=== PATIENT | male | born 1970 | race Caucasian/White ===

== ENCOUNTER 2023-06-18 09:26 | Emergency (ER) | payer OTHER, MEDICAID, SELFPAY ==
[2023-06-18 09:31] VITALS: BP 128/86; PULSE 80; RESP 18; TEMP 36.7; O2SAT 98; BMI 25.0
--- NOTE | 2023-06-18 09:54 | PC.NURSE ---
Dr. Cordero at bedside for initial eval
--- NOTE | 2023-06-18 09:59 | ED_ITS ---
HPI - General Adult General Chief complaint: Upper Respiratory Symptoms Stated complaint: throath feel closed up, ear pain Time Seen by Provider: 06/18/23 09:35 Source: patient Mode of arrival: Ambulatory History of Present Illness HPI narrative: Patient is a 52-year-old male. History of MS. For the past 10 days he is had sinus congestion, sore throat, ear pain. He states that yesterday he felt a sharp pain in his right ear and then started to get drainage out of the ear. He does have decreased hearing in this ear because of that. His left ear feels full. He is also having pain in his throat specifically with swallowing. Swel ling on the left side of his neck. No problems breathing. Is coughing. No fevers. Tested himself for COVID at home yesterday which was negative. Related Data Allergies Allergy/AdvReac Type Severity Reaction Status Date / Time codeine [CODEINE] Allergy Unknown Unverified 11/11/17 12:31 Review of Systems Constitutional Constitutional: Reports system reviewed and no additional complaints, except as documented ENT Ears, Nose, Mouth, and Throat: Reports system reviewed and no additional complaints, except as documented Respiratory Respiratory: Reports system reviewed and no additional complaints, except as documented Allergic/Immunologic Allergic/Immunologic: Reports system reviewed and no additional complaints, except as documented Patient History Social History Smoking Status: Current every day smoker Smoking Status: Current every day smoker tobacco type: cigarettes Exam Initial Vital Signs Initial Vital Signs: Vital Signs Temperature 98.1 F 06/18/23 09:31 Pulse Rate 80 06/18/23 09:31 Respiratory Rate 18 06/18/23 09:31 Blood Pressure 128/86 06/18/23 09:31 Pulse Oximetry 98 06/18/23 09:31 Oxygen Delivery Method Room Air 06/18/23 09:31 Const General: cooperative, comfortable and No ill appearing HENMT Ears: EAC's normal (There is fluid in the right external auditory canal) Mouth: oral mucosae normal, tongue normal and No trismus Throat: uvula midline and abnormal tonsil on the left erythema and exudates HENMT Other: Left tympanic membrane bulging, right tympanic membrane retracted Neck Other: Left submandibular lymphadenopathy Resp Effort & Inspection: normal respiratory effort Skin General: no rashes or lesions noted Neuro General: patient alert, patient awake and moves all extremities Extrem General: normal to inspection Course Orders Ordered: ED Orders 06/18/23 10:02 Strep Grp A by PCR Rapid Stat Throat Culture Stat Penicillin G Benzathine (Penicillin G Benzathine 1,200,000 Unit/2 Ml Syringe) 1,200,000 unit IM NOW ONE Stop: 06/18/23 10:38 Vital Signs Vital signs: Vital Signs - 8 hr 06/18/23 09:31 Temperature 98.1 F Pulse Rate 80 Respiratory Rate 18 Blood Pressure 128/86 Pulse Oximetry 98 Oxygen Delivery Method Room Air Medical Decision Making Lab Data Lab results reviewed: Yes I reviewed the patient's lab results. Labs: Lab Results 06/18/23 Range/Units 10:02 Group A Strep (PCR) Positive H (Negative) MDM Narrative Medical decision making narrative: Patient does have strep throat. After discussion about treatment options to include oral and IM antibiotics he opted for the IM dose of Bicillin. We discussed that this should improve his symptoms. We discussed the use of antihistamines. I have a strong suspicion that he has a ruptured right tympanic membrane. The tympanic membrane is not erythematous. There is fluid in the external auditory canal but it is not erythematous as well. Advised that the patient should follow-up with your nose and throat if his symptoms do not improve. He was given return precautions. He expressed understanding and agreement. Discharge Plan Departure Patient Disposition: Home Clinical Impression: Strep throat, Rupture of right tympanic membrane Instructions: Strep Throat Activity Restrictions/Additional Instructions: You can continue to take Tylenol and ibuprofen for any discomfort. You should start to see some improvement within the next 24 hours. Recommend that if you still are having hearing issues with your right ear after all of your other symptoms have improved that you contact the [facility] doctors with the number provided below for follow-up. Referrals: Nehemias Akbar MD [Primary Care Provider] - Elijah Berrios MD [Physician] - Stand Alone Forms: Patient Portal/API
[2023-06-18 10:15] LABS: Strep Grp A by PCR Rapid Positive (Negative)
[2023-06-18] MEDS: PENICILLIN G BENZATHINE 1,200,000 UNIT/2 ML SYRINGE 1200000 UNIT IM (10:43)
[2023-06-18 10:51] VITALS: BP 142/80; PULSE 79; RESP 12; O2SAT 98
[2023-06-18 10:53] VITALS: BP 142/80; PULSE 79; RESP 12; O2SAT 98
== END 2023-06-18 10:55 | disposition home or self-care (01) ==
PROVIDERS: Emergency Provider Emergency Medicine; Family Provider Family Medicine; PCP Family Medicine
DX: J02.0 Streptococcal pharyngitis (principal); H72.91 Unspecified perforation of tympanic membrane, right ear; F17.200 Nicotine dependence, unspecified, uncomplicated
CPT/HCPCS: 87070; 87077; 87147; 87651; 96372; 99283; J0561

== ENCOUNTER 2023-06-19 17:21 | Emergency (ER) | payer OTHER, MEDICAID, SELFPAY ==
[2023-06-19 17:34] VITALS: BP 113/66; PULSE 70; RESP 22; TEMP 37.6; O2SAT 98; BMI 25.0
[2023-06-19] MEDS: SODIUM CHLORIDE 0.9% 1,000 ML 1000 ML IV (17:59)
[2023-06-19] MEDS: DEXAMETHASONE 10 MG/ML VIAL IV (17:59)
[2023-06-19 18:19] LABS: Add Manual Diff / Slide Review NO; Basophils Absolute Auto 100 /uL (0-100); Basophils Percent Auto 0.6 % (0-2); Eosinophils Absolute Auto 100 /uL (0-450); Eosinophils Percent Auto 0.5 % (2-4); Hematocrit 44.8 % (41-53); Hemoglobin 15.4 g/dL (13.5-17.5); Lymphocytes Absolute Auto 1300 /uL (1100-4500); Mean Corpuscular HGB Conc 34.4 % (30-36); Mean Corpuscular Hemoglobin 29.4 PG (26-34); Mean Corpuscular Volume 85.4 fL (80-100); Monocytes Absolute Auto 1800 /uL (0-900); Monocytes Percent Auto 9.5 % (3-14); Neutrophils Absolute Auto 15800 /uL (1500-7000); Neutrophils Percent Auto 82.4 % (50-75); Platelet Count 331 X10^3/uL (150-400); Red Blood Cell Count 5.25 X10^6/uL (4.5-5.9); Red Cell Distribution Width 12.8 % (11.6-14.8); White Blood Cell Count 19.1 X10^3/uL (4.5-11.0)
[2023-06-19 18:31] LABS: BUN Creatinine Ratio 19.1 (6-22); Blood Urea Nitrogen 17 mg/dL (9-20); Calcium 9.4 mg/dL (8.4-10.2); Carbon Dioxide 25 mmol/L (22-32); Chloride 103 mmol/L (98-107); Estimated Glomerular Filt Rate > 60 mL/min (>60); Glucose 104 mg/dL (70-100); HEMOLYSIS < 15 (0-50); Potassium 4.2 mmol/L (3.4-5.1); Sodium 136 mmol/L (137-145)
--- NOTE | 2023-06-19 19:29 | ED.URI ---
HPI - URI/Sore Throat General Chief Complaint: Upper Respiratory Symptoms Stated Complaint: Sore throat T-12 Time Seen by Provider: 06/19/23 17:48 History of Present Illness HPI Narrative: Gentleman comes to the ED today with a number of days worth of sore throat and fever. He was seen yesterday and given penicillin for his diagnosed strep throat. Since then he is developed increasing difficulty with swallowing and fullness in the back of his throat. Quite a bit of ear pain bilaterally. No vomiting but quite a bit of difficulty swallowing as well and he is concerned that he may be becoming dehydrated. No chest or abdominal symptoms. He does have multiple sclerosis but is currently taking no biologic medications. Related Data Previous Rx's Medication Instructions Recorded amoxicillin 875 mg-potassium 1 tab PO BID #14 tabs 06/19/23 clavulanate 125 mg tablet dexamethasone 4 mg tablet 4 mg PO Q12H #10 tabs 06/19/23 morphine 15 mg immediate release 15 mg PO Q4H #14 tabs 06/19/23 tablet naloxone 4 mg/actuation nasal 4 mg intranasal Q2M PRN opioid 06/19/23 spray (Narcan) overdose #2 ea Allergies Allergy/AdvReac Type Severity Reaction Status Date / Time codeine [CODEINE] Allergy Unknown Verified 06/19/23 17:59 Patient History Social History Smoking Status: Current every day smoker Smoking Status: Current every day smoker tobacco type: cigarettes alcohol intake frequency: 0-2 drinks per day Substance Use Type: marijuana Exam Narrative Exam Narrative: GENERAL: Alert, cooperative and in no distress. HEAD: Atraumatic. Normocephalic. EYES: Sclera are clear without icterus. Extraocular movements are full. ENT: No rhinorrhea. Moist mucous membranes. Bulging of the tonsil on the left toward the right. The hypopharynx is widely patent otherwise. No purulent drainage. TM on the left looks normal. On the right there is material in the canal obscuring the view of the tympanic membrane. NECK: Supple. Full range of motion. No induration of the floor of the mouth. He has no tender cervical adenopathy. CARDIOVASCULAR: Normal rate and rhythm without murmur gallop or rub. RESPIRATORY: Clear to auscultation. Breath sounds equal bilaterally. No wheezes, rales, or rhonchi. GASTROINTESTINAL: Abdomen soft, non-tender, nondistended. EXTREMITIES: No edema, full range of motion. No obvious trauma. BACK: Normal inspection, no CVA tenderness. NEURO: Nonfocal examination, normal speech, normal gait. SKIN: No rash or erythema of visible areas PSYCH: Normally oriented. Normal range of affect. Appropriate behavior Initial Vital Signs Initial Vital Signs: Vital Signs Temperature 99.7 F H 06/19/23 17:34 Pulse Rate 70 06/19/23 17:34 Respiratory Rate 22 06/19/23 17:34 Blood Pressure 113/66 06/19/23 17:34 Pulse Oximetry 98 06/19/23 17:34 Oxygen Delivery Method Room Air 06/19/23 17:34 Course Orders Ordered: ED Orders 06/19/23 18:00 Basic Metabolic Panel Stat Complete Blood Count AUTO DIFF Stat Discontinued Medications Dexamethasone (Dexamethasone 10 Mg/Ml Vial) 10 mg IV NOW ONE Stop: 06/19/23 17:49 Last Admin: 06/19/23 17:59 Dose: 10 mg Documented By: ANA LUISA Sodium Chloride (Normal Saline 0.9%) 1,000 mls @ 1,000 mls/hr IV BOLUS ONE Stop: 06/19/23 18:47 Last Infusion: 06/19/23 18:51 Dose: Infused Documented By: ANA LUISA Admin: 06/19/23 17:59 Dose: 1,000 mls/hr Documented By: ANA LUISA Vital Signs Vital signs: Vital Signs - 8 hr 06/19/23 17:34 Temperature 99.7 F H Pulse Rate 70 Respiratory Rate 22 Blood Pressure 113/66 Pulse Oximetry 98 Oxygen Delivery Method Room Air MDM - URI/Sore Throat Lab Data 06/19/23 18:00 06/19/23 18:00 Labs: Lab Results 06/19/23 Range/Units 18:00 WBC 19.1 H (4.5-11.0) X10^3/uL RBC 5.25 (4.5-5.9) X10^6/uL Hgb 15.4 (13.5-17.5) g/dL Hct 44.8 (41-53) % MCV 85.4 (80-100) fL MCH 29.4 (26-34) PG MCHC 34.4 (30-36) % RDW 12.8 (11.6-14.8) % Plt Count 331 (150-400) X10^3/uL Neut % (Auto) 82.4 H (50-75) % Lymph % (Auto) 7.0 L (25-40) % Grainger % (Auto) 9.5 (3-14) % Eos % (Auto) 0.5 L (2-4) % Baso % (Auto) 0.6 (0-2) % Neut # (Auto) 70530 H (3480-5300) /uL Lymph # (Auto) 1300 (5970-1228) /uL Grainger # (Auto) 1800 H (0-900) /uL Eos # (Auto) 100 (0-450) /uL Baso # (Auto) 100 (0-100) /uL Sodium 136 L (137-145) mmol/L Potassium 4.2 (3.4-5.1) mmol/L Chloride 103 (98-107) mmol/L Carbon Dioxide 25 (22-32) mmol/L BUN 17 (9-20) mg/dL Creatinine 0.89 (0.66-1.25) mg/dL Estimated GFR > 60 (>60) mL/min BUN/Creatinine Ratio 19.1 (6-22) Glucose 104 H (70-100) mg/dL Calcium 9.4 (8.4-10.2) mg/dL MDM Narrative Medical decision making narrative: Prior to coming back he received 1 L of IV saline and dexamethasone IV. White blood cell count is markedly elevated but he looks quite well with normal vital signs now. His hypopharynx is widely patent and he feels like he can swallow now. I think home care is safe and appropriate. We will put him on dexamethasone 4 mg twice daily and add Augmentin 875 b.i.d. for 7 days. Careful return precautions given. See discharge instructions. Discharge Plan Departure Patient Disposition: Home Clinical Impression: Peritonsillar abscess Activity Restrictions/Additional Instructions: You have swelling on the left side of the back of her mouth which is called a peritonsillar abscess. Take the dexamethasone morning and night for the next 5 days. Take Tylenol 1000 mg every 6 hours. For more severe pain take 1 morphine tablet as frequently as every 4 hours. Make sure that you are staying well hydrated. Return to the ED if you do not think you are able to keep up or if you think you are having trouble with breathing. Typically this gets better with these medication treatments. I do also want to add on an additional antibiotic which I have sent to the pharmacy as well. You do need to check in with your doctor in 1 or 2 weeks to make sure everything is gone back to normal. Prescriptions: New amoxicillin-pot clavulanate 875-125 mg tablet 1 tab PO BID Qty: 14 0RF dexamethasone 4 mg tablet 4 mg PO Q12H Qty: 10 0RF morphine 15 mg tablet 15 mg PO Q4H Qty: 14 0RF naloxone [Narcan] 4 mg/actuation spray,non-aerosol 4 mg intranasal Q2M PRN (Reason: opioid overdose) Qty: 2 0RF Rx Instructions: spray 1 dose into ONE nostril; alternate nostrils w each dose until help arrives Referrals: Nehemias Akbar MD [Primary Care Provider] - Stand Alone Forms: Patient Portal/API
== END 2023-06-19 19:41 | disposition home or self-care (01) ==
PROVIDERS: Emergency Medicine; Emergency Provider Family Medicine Addiction Medicine; Family Provider Family Medicine; PCP Family Medicine
DX: J36 Peritonsillar abscess (principal)
CPT/HCPCS: 36415; 80048; 85025; 96361; 96374; 99284; J1100

== ENCOUNTER 2023-06-21 17:19 | Emergency (ER) | payer OTHER, MEDICAID, SELFPAY ==
[2023-06-21] VITALS (7 sets, daily range): BP systolic 118–155; BP diastolic 72–95; PULSE 56–68; RESP 16; TEMP 36.8; O2SAT 96–99; BMI 25.0
--- NOTE | 2023-06-21 17:28 | ED_ITS ---
HPI - General Adult <Wilfrid Diaz PA-C - Last Filed: 06/21/23 18:47> General Chief complaint: Skin/Abscess/Foreign Body Stated complaint: Absces tonsil Time Seen by Provider: 06/21/23 17:25 History of Present Illness HPI narrative: This is a 52-year-old male presents to emergency department due to similar to worsening pain to the left side of his throat. Three days ago he was diagnosed with strep throat and prescribed penicillin. Two days ago he came into the emergency department with worsening sore throat and diagnosed with a peritonsillar abscess and Augmentin was added on top of the penicillin. He was also given dexamethasone. Coming in today due to increased discomfort to the left side of his throat. No difficulty breathing or swallowing states that it hurts too much to maintain much p.o. intake. Denies any nausea, vomiting, fevers, or any other concerning signs or symptoms. Related Data Previous Rx's Medication Instructions Recorded amoxicillin 875 mg-potassium 1 tab PO BID #14 tabs 06/19/23 clavulanate 125 mg tablet dexamethasone 4 mg tablet 4 mg PO Q12H #10 tabs 06/19/23 morphine 15 mg immediate release 15 mg PO Q4H #14 tabs 06/19/23 tablet naloxone 4 mg/actuation nasal 4 mg intranasal Q2M PRN opioid 06/19/23 spray (Narcan) overdose #2 ea amoxicillin 875 mg-potassium 1 tab PO BID 12 days #24 tabs 06/21/23 clavulanate 125 mg tablet lidocaine HCl 2 % mucosal solution 1 applic mucous membrane BID PRN 06/21/23 (Lidocaine Viscous) pain #100 mL Allergies Allergy/AdvReac Type Severity Reaction Status Date / Time codeine [CODEINE] Allergy Unknown Verified 06/19/23 17:59 Review of Systems <Wilfrid Diaz PA-C - Last Filed: 06/21/23 18:47> Review of Systems Narrative: GENERAL: Denies chills, fatigue, malaise, fever, sweats. HEENT: Reports left sided throat pain RESPIRATORY: Denies dyspnea, cough, wheezing, hemoptysis, sputum. CARDIOVASCULAR: Denies chest pain, palpitations, orthopnea, edema, GASTROINTESTINAL: Denies nausea, vomiting, abdominal pain, diarrhea, constipation, melena. : Denies dysuria, frequency, incontinence, hematuria, urinary retention. MUSCULOSKELETAL: denies weakness, joint pain, or bony pain SKIN: Denies rash, skin lesions, or other NEUROLOGIC: Denies weakness, headache, numbness, change in speech, confusion, seizures, incoordination. PSYCHIATRIC: No concerning psychosocial issues. 12 point review of systems is negative except for those stated above Patient History <Wilfrid Diaz PA-C - Last Filed: 06/21/23 18:47> Social History Smoking Status: Current every day smoker Smoking Status: Current every day smoker tobacco type: cigarettes alcohol intake frequency: 0-2 drinks per day Substance Use Type: marijuana Exam <Wilfrid Diaz PA-C - Last Filed: 06/21/23 18:47> Narrative Exam Narrative: GENERAL: Well-developed patient, in mild distress. HEAD: Atraumatic. Normocephalic. EYES: Pupils equal round and reactive. Extraocular motions intact. No scleral icterus. No injection or drainage. ENT: Nose without bleeding, purulent drainage. Airway patent. Erythematous posterior oropharynx with tonsillar edema on the left side. Uvula midline. No exudate visible. NECK: Trachea midline. Non tender CARDIOVASCULAR: Regular rate and rhythm without murmurs, gallops, or rubs. RESPIRATORY: Clear to auscultation. Breath sounds equal bilaterally. No wheezes, rales, or rhonchi. GASTROINTESTINAL: Abdomen soft, non-tender, nondistended. EXTREMITIES: No edema or joint tenderness. BACK: Nontender without deformity or crepitance. No flank tenderness. NEURO: AOx3. SKIN: No rash or erythema of visible areas Initial Vital Signs Initial Vital Signs: Vital Signs Pulse Rate 66 06/21/23 17:26 Pulse Oximetry 98 06/21/23 17:26 <Vashti Hooks DO - Last Filed: 06/23/23 07:38> Initial Vital Signs Initial Vital Signs: Vital Signs Pulse Rate 66 06/21/23 17:26 Pulse Oximetry 98 06/21/23 17:26 Course <Wilfrid Diaz PA-C - Last Filed: 06/21/23 18:47> Orders Ordered: Discontinued Medications Dexamethasone (Dexamethasone 4 Mg/Ml Vial) 4 mg IV NOW ONE Stop: 06/21/23 17:44 Last Admin: 06/21/23 17:58 Dose: 4 mg Documented By: MICHEL Sodium Chloride (Normal Saline 0.9%) 1,000 mls @ 2,000 mls/hr IV BOLUS ONE Stop: 06/21/23 18:12 Last Infusion: 06/21/23 18:45 Dose: Infused Documented By: Admin: 06/21/23 17:58 Dose: 2,000 mls/hr Documented By: MICHEL Ceftriaxone Sodium 2,000 mg/ (Sodium Chloride) 100 mls @ 200 mls/hr IV NOW ONE Stop: 06/21/23 18:07 Last Infusion: 06/21/23 18:45 Dose: Infused Documented By: Admin: 06/21/23 18:10 Dose: 200 mls/hr Documented By: MICHEL Ketorolac Tromethamine (Ketorolac 30 Mg/Ml Vial) 15 mg IV NOW ONE Stop: 06/21/23 17:54 Last Admin: 06/21/23 17:59 Dose: 15 mg Documented By: MICHEL Ondansetron HCl (Ondansetron 4 Mg/2 Ml Inj) 4 mg IV NOW ONE Stop: 06/21/23 18:07 Last Admin: 06/21/23 18:10 Dose: 4 mg Documented By: MICHEL Vital Signs Vital signs: Vital Signs - 8 hr 06/21/23 17:26 06/21/23 17:27 06/21/23 17:27 Temperature Pulse Rate 66 66 Respiratory Rate Blood Pressure 148/95 H Pulse Oximetry 98 97 Oxygen Delivery Method 06/21/23 17:29 06/21/23 17:30 06/21/23 18:04 Temperature 98.3 F Pulse Rate 68 56 L 65 Respiratory Rate 16 Blood Pressure 148/95 H Pulse Oximetry 98 99 97 Oxygen Delivery Method Room Air 06/21/23 18:05 06/21/23 18:05 Temperature Pulse Rate 65 Respiratory Rate Blood Pressure 155/78 H Pulse Oximetry 98 Oxygen Delivery Method <Vashti Hooks DO - Last Filed: 06/23/23 07:38> Orders Ordered: Discontinued Medications Dexamethasone (Dexamethasone 4 Mg/Ml Vial) 4 mg IV NOW ONE Stop: 06/21/23 17:44 Last Admin: 06/21/23 17:58 Dose: 4 mg Documented By: MICHEL Sodium Chloride (Normal Saline 0.9%) 1,000 mls @ 2,000 mls/hr IV BOLUS ONE Stop: 06/21/23 18:12 Last Infusion: 06/21/23 18:45 Dose: Infused Documented By: Admin: 06/21/23 17:58 Dose: 2,000 mls/hr Documented By: MICHEL Ceftriaxone Sodium 2,000 mg/ (Sodium Chloride) 100 mls @ 200 mls/hr IV NOW ONE Stop: 06/21/23 18:07 Last Infusion: 06/21/23 18:45 Dose: Infused Documented By: Admin: 06/21/23 18:10 Dose: 200 mls/hr Documented By: MICHEL Ketorolac Tromethamine (Ketorolac 30 Mg/Ml Vial) 15 mg IV NOW ONE Stop: 06/21/23 17:54 Last Admin: 06/21/23 17:59 Dose: 15 mg Documented By: MICHEL Ondansetron HCl (Ondansetron 4 Mg/2 Ml Inj) 4 mg IV NOW ONE Stop: 06/21/23 18:07 Last Admin: 06/21/23 18:10 Dose: 4 mg Documented By: MICHEL Vital Signs Vital signs: Vital Signs - 8 hr 06/21/23 17:26 06/21/23 17:27 06/21/23 17:27 Temperature Pulse Rate 66 66 Respiratory Rate Blood Pressure 148/95 H Pulse Oximetry 98 97 Oxygen Delivery Method 06/21/23 17:29 06/21/23 17:30 06/21/23 18:04 Temperature 98.3 F Pulse Rate 68 56 L 65 Respiratory Rate 16 Blood Pressure 148/95 H Pulse Oximetry 98 99 97 Oxygen Delivery Method Room Air 06/21/23 18:05 06/21/23 18:05 Temperature Pulse Rate 65 Respiratory Rate Blood Pressure 155/78 H Pulse Oximetry 98 Oxygen Delivery Method Medical Decision Making <Wilfrid Diaz PA-C - Last Filed: 06/21/23 18:47> Lab Data 06/21/23 17:43 06/21/23 17:43 Labs: Lab Results 06/21/23 Range/Units 17:43 WBC 23.5 H (4.5-11.0) X10^3/uL RBC 5.21 (4.5-5.9) X10^6/uL Hgb 15.3 (13.5-17.5) g/dL Hct 45.0 (41-53) % MCV 86.4 (80-100) fL MCH 29.4 (26-34) PG MCHC 34.0 (30-36) % RDW 13.0 (11.6-14.8) % Plt Count 385 (150-400) X10^3/uL Neut % (Auto) 87.3 H (50-75) % Lymph % (Auto) 6.2 L (25-40) % Vigo % (Auto) 6.3 (3-14) % Eos % (Auto) 0.0 L (2-4) % Baso % (Auto) 0.2 (0-2) % Neut # (Auto) 86474 H (9012-4467) /uL Lymph # (Auto) 1500 (1743-1839) /uL Vigo # (Auto) 1500 H (0-900) /uL Eos # (Auto) 0 (0-450) /uL Baso # (Auto) 0 (0-100) /uL Sodium 139 (137-145) mmol/L Potassium 4.3 (3.4-5.1) mmol/L Chloride 102 (98-107) mmol/L Carbon Dioxide 25 (22-32) mmol/L BUN 25 H (9-20) mg/dL Creatinine 0.85 (0.66-1.25) mg/dL Estimated GFR > 60 (>60) mL/min BUN/Creatinine Ratio 29.4 H (6-22) Glucose 128 H (70-100) mg/dL Calcium 9.4 (8.4-10.2) mg/dL Total Bilirubin 0.6 (0.2-1.3) mg/dL AST 15 L (17-59) IU/L ALT 14 (<50) IU/L Alkaline Phosphatase 74 (38-126) U/L Total Protein 8.3 H (6.3-8.2) g/dL Albumin 4.0 (3.5-5.0) g/dL Globulin 4.3 H (1.7-4.1) g/dL Albumin/Globulin Ratio 0.9 L (1.0-2.8) Imaging Data CT neck soft tissue : Radiologist's Impression: [address] [address] [address] Scan Report Signed Patient: Elijah Jaimes MR#: [id number] : 1970 Acct:[id number] Age/Sex: 52 / M Date of Service: 06/21/23 Loc: ED Accession Number: [id number] Procedure: CT soft tissue neck w con Ordering Provider: Wilfrid Diaz P.A-C PROCEDURE: CT SOFT TISSUE NECK W CON INDICATIONS: Concern for L sided peritonsillar abscess TECHNIQUE: After the administration of intravenous contrast, 3.0 mm axial sections acquired from the sella to the aortic arch. Additional oblique axial 3.0 mm sections acquired through the pharynx. 3 mm thick coronal and sagittal reformats were generated. For radiation dose reduction, the following was used: automated exposure control. COMPARISON: None. FINDINGS: Image quality: Excellent. Lymph nodes: Left cervical lymphadenopathy within cervical regions 2 and 3. Vessels: Visualized vasculature appears patent. Neck spaces: Left peritonsillar abscess measuring 2.8 x 1.8 x 4.8 cm in the craniocaudal dimension. Extends along the prevertebral soft tissues to the level of C4. The nasopharynx, and pharynx demonstrate no mucosal lesions. The vocal cords, false vocal cords, pyriform sinuses, epiglottis, vallecula, and tongue base all appear normal. Glands: The parotid and submandibular glands appear normal. Thyroid gland contains no suspicious nodules. Miscellaneous: Visualized brain and orbits appear normal. Lung apices appear clear. Superficial soft tissues appear normal. Bones: No suspicious bony lesions. Opacification of the right maxillary sinus. IMPRESSION: Left peritonsillar abscess. Dr. Hart discussed the above findings with the ER physician at 5:30 p.m. [place] time Dictated by: Emmanuel Hart M.D. on 06/21/2023 at 17:22 Approved by: Emmanuel Hart M.D. on 06/21/2023 at 17:33 [facility] Narrative Medical decision making narrative: MDM * differential diagnosis includes but not limited to peritonsillar abscess, retropharyngeal abscess, strep throat * Prior records reviewed: Patient was seen here 2 days ago due to peritonsillar abscess. Patient was given penicillin for diagnosis of strep throat the day prior. He then developed difficulty with swallowing and fullness in the back of the throat. White blood cell count was 19.1. Patient was given a L of fluids and dexamethasone IV. Patient was prescribed dexamethasone 4 mg b.i.d. and Augmentin added for 7 days. After being diagnosed with a peritonsillar abscess. * My lab interpretation: CMP unremarkable. CBC showed leukocytosis of 23.5. 19.1 2 days ago. Increasing white count maybe due to the steroids that the patient has been given during the prior visit as well as prescribed. * My imgaing interpretation: CT findings as above. Showed a left-sided peritonsillar abscess. * Clinical Decision Rules/Scores evaluated: None * Independent discussions with: None ED Course: This is a 52-year-old male presents to the emergency department due to concerns for worsening infection. Two days ago he was seen here in the emergency department and diagnosed with a peritonsillar abscess in the left side. Please see the above record review. Patient states that he has been taking the Augmentin and dexamethasone that he was prescribed as well as the morphine for pain control. He states that he was still having a moderate amount of pain causing him to come in today. He denies any new fevers or any other new symptoms. He was still able to maintain his secretions and denies any difficulty breathing. CT was ordered today which confirmed the left-sided peritonsillar abscess. He was given IV dexamethasone, Toradol, ceftriaxone and fluids here in the emergency department. He reported feeling much better. White count was mildly elevated with a value of 23.5, 19.1 2 days ago which maybe due to the steroids he was given 2 days ago. Patient will be discharged with a a prescription to complete an entire 14 day course of the Augmentin as well as oral dexamethasone and viscous lidocaine for pain control. Also recommended ibuprofen and Tylenol as well as the morphine that he was previously prescribed. Shared Decision Making: Discussed plan with patient who is comfortable with the plan. Social Considerations: None Disposition: Discharged to home <Vashti Hooks, - Last Filed: 06/23/23 07:38> Lab Data Labs: Lab Results 06/21/23 Range/Units 17:43 WBC 23.5 H (4.5-11.0) X10^3/uL RBC 5.21 (4.5-5.9) X10^6/uL Hgb 15.3 (13.5-17.5) g/dL Hct 45.0 (41-53) % MCV 86.4 (80-100) fL MCH 29.4 (26-34) PG MCHC 34.0 (30-36) % RDW 13.0 (11.6-14.8) % Plt Count 385 (150-400) X10^3/uL Neut % (Auto) 87.3 H (50-75) % Lymph % (Auto) 6.2 L (25-40) % Vigo % (Auto) 6.3 (3-14) % Eos % (Auto) 0.0 L (2-4) % Baso % (Auto) 0.2 (0-2) % Neut # (Auto) 97105 H (8877-9768) /uL Lymph # (Auto) 1500 (1957-8146) /uL Vigo # (Auto) 1500 H (0-900) /uL Eos # (Auto) 0 (0-450) /uL Baso # (Auto) 0 (0-100) /uL Sodium 139 (137-145) mmol/L Potassium 4.3 (3.4-5.1) mmol/L Chloride 102 (98-107) mmol/L Carbon Dioxide 25 (22-32) mmol/L BUN 25 H (9-20) mg/dL Creatinine 0.85 (0.66-1.25) mg/dL Estimated GFR > 60 (>60) mL/min BUN/Creatinine Ratio 29.4 H (6-22) Glucose 128 H (70-100) mg/dL Calcium 9.4 (8.4-10.2) mg/dL Total Bilirubin 0.6 (0.2-1.3) mg/dL AST 15 L (17-59) IU/L ALT 14 (<50) IU/L Alkaline Phosphatase 74 (38-126) U/L Total Protein 8.3 H (6.3-8.2) g/dL Albumin 4.0 (3.5-5.0) g/dL Globulin 4.3 H (1.7-4.1) g/dL Albumin/Globulin Ratio 0.9 L (1.0-2.8) Discharge Plan Departure Patient Disposition: Home Clinical Impression: Abscess, peritonsillar Instructions: DI for Peritonsillar Abscess -- Adult Activity Restrictions/Additional Instructions: Thank you for coming to the [facility] Emergency Department today. As as we discussed I recommend he use ibuprofen and Tylenol for pain control. You may also use the morphine that your previously prescribed for breakthrough pain. I will also had viscous lidocaine for you to use which may help with the throat discomfort you are experiencing. Please complete the entire course of antibiotics prescribed for a total of a 14 day course. You may use the ibuprofen 600 mg every 6 hours as well as the Tylenol recommended by Dr. Evangelista during your previous visit. I hope you feel better soon. Please follow up with your primary care provider within a week if your symptoms continue. If you do not have a primary care provider please contact the [facility] Resource line at [phone]. They will ask some questions about your medical history and help you get set up with a provider in the community. Prescriptions: New lidocaine HCl [Lidocaine Viscous] 2 % solution 1 applic mucous membrane BID PRN (Reason: pain) Qty: 100 0RF amoxicillin-pot clavulanate 875-125 mg tablet 1 tab PO BID 12 Days Qty: 24 0RF No Action amoxicillin-pot clavulanate 875-125 mg tablet 1 tab PO BID Qty: 14 0RF dexamethasone 4 mg tablet 4 mg PO Q12H Qty: 10 0RF morphine 15 mg tablet 15 mg PO Q4H Qty: 14 0RF naloxone [Narcan] 4 mg/actuation spray,non-aerosol 4 mg intranasal Q2M PRN (Reason: opioid overdose) Qty: 2 0RF Rx Instructions: spray 1 dose into ONE nostril; alternate nostrils w each dose until help arrives Referrals: Nehemias Akbar MD [Primary Care Provider] - Stand Alone Forms: Patient Portal/API ED Sign-out <Vashti Hooks, - Last Filed: 06/23/23 07:38> Cosign ED Attending Ortizature Attestation: I was immediately available in the department for consultation. Patient is a 52-year-old male with history of MS not on any daily medications was seen independently by myself as well he does appear to have [id number] left peritonsillar abscess states that is actually improving in terms of no longer having swelling of the neck or cheek. Patient states it is painful but able to swallow secretions, no muffled voice he appears overall fairly comfortable. He does have dexamethasone, Augmentin and oral morphine for pain control. Patient states he was told to avoid NSAIDs secondary to the steroids. Patient had repeat labs, CT for evaluations was given fluids dose of Toradol, dexamethasone and antibiotic. CT confirms left peritonsillar abscess. Patient did note he got a little bit behind in his pain management medications. Patient signed out to Dr. De Luna Left department prior to patient disposition but he appears to likely need some more time, better pain management but appears to be improving overall rather than worsening clinically.
--- NOTE | 2023-06-21 17:43 | DI.CT.S_ITS ---
PROCEDURE: CT SOFT TISSUE NECK W CON INDICATIONS: Concern for L sided peritonsillar abscess TECHNIQUE: After the administration of intravenous contrast, 3.0 mm axial sections acquired from the sella to the aortic arch. Additional oblique axial 3.0 mm sections acquired through the pharynx. 3 mm thick coronal and sagittal reformats were generated. For radiation dose reduction, the following was used: automated exposure control. COMPARISON: None. FINDINGS: Image quality: Excellent. Lymph nodes: Left cervical lymphadenopathy within cervical regions 2 and 3. Vessels: Visualized vasculature appears patent. Neck spaces: Left peritonsillar abscess measuring 2.8 x 1.8 x 4.8 cm in the craniocaudal dimension. Extends along the prevertebral soft tissues to the level of C4. The nasopharynx, and pharynx demonstrate no mucosal lesions. The vocal cords, false vocal cords, pyriform sinuses, epiglottis, vallecula, and tongue base all appear normal. Glands: The parotid and submandibular glands appear normal. Thyroid gland contains no suspicious nodules. Miscellaneous: Visualized brain and orbits appear normal. Lung apices appear clear. Superficial soft tissues appear normal. Bones: No suspicious bony lesions. Opacification of the right maxillary sinus. IMPRESSION: Left peritonsillar abscess. Dr. Hart discussed the above findings with the ER physician at 5:30 p.m. [place] time Dictated by: Emmanuel Hart M.D. on 06/21/2023 at 17:22 Approved by: Emmanuel Hart M.D. on 06/21/2023 at 17:33
[2023-06-21 17:56] LABS: Add Manual Diff / Slide Review NO; Basophils Absolute Auto 0 /uL (0-100); Basophils Percent Auto 0.2 % (0-2); Eosinophils Absolute Auto 0 /uL (0-450); Hemoglobin 15.3 g/dL (13.5-17.5); Lymphocytes Absolute Auto 1500 /uL (1100-4500); Lymphocytes Percent Auto 6.2 % (25-40); Mean Corpuscular Hemoglobin 29.4 PG (26-34); Mean Corpuscular Volume 86.4 fL (80-100); Monocytes Absolute Auto 1500 /uL (0-900); Monocytes Percent Auto 6.3 % (3-14); Neutrophils Absolute Auto 20500 /uL (1500-7000); Neutrophils Percent Auto 87.3 % (50-75); Platelet Count 385 X10^3/uL (150-400); Red Blood Cell Count 5.21 X10^6/uL (4.5-5.9); White Blood Cell Count 23.5 X10^3/uL (4.5-11.0)
[2023-06-21] MEDS: DEXAMETHASONE 4 MG/ML VIAL IV (17:58)
[2023-06-21] MEDS: SODIUM CHLORIDE 0.9% 1,000 ML 2000 ML IV (17:58)
[2023-06-21] MEDS: KETOROLAC 30 MG/ML VIAL 15 MG IV (17:59)
[2023-06-21 18:05] LABS: Alanine Aminotransferase 14 IU/L (<50); Albumin Globulin Ratio 0.9 (1.0-2.8); Alkaline Phosphatase 74 U/L (38-126); Aspartate Aminotransferase 15 IU/L (17-59); BUN Creatinine Ratio 29.4 (6-22); Bilirubin Total 0.6 mg/dL (0.2-1.3); Blood Urea Nitrogen 25 mg/dL (9-20); Calcium 9.4 mg/dL (8.4-10.2); Carbon Dioxide 25 mmol/L (22-32); Chloride 102 mmol/L (98-107); Estimated Glomerular Filt Rate > 60 mL/min (>60); Globulin 4.3 g/dL (1.7-4.1); Glucose 128 mg/dL (70-100); HEMOLYSIS 15 (0-50); Potassium 4.3 mmol/L (3.4-5.1); Sodium 139 mmol/L (137-145); Total Protein 8.3 g/dL (6.3-8.2)
--- NOTE | 2023-06-21 18:06 | PC.NURSE ---
report from plasma center technician that pt vomited x 1 approx 20 sec s/p contrast admin; Dr. De Luna and Neva notified; per Dr. De Luna do not add iodine to allergy list. pt awake, alert, maintaining airway and secretions; no acute medical distress noted.
[2023-06-21] MEDS: cefTRIAXone 2,000 MG in SODIUM CHLORIDE 0.9% 100 ML 200 MG IV (18:10)
[2023-06-21] MEDS: ONDANSETRON 4 MG/2 ML INJ IV (18:10)
== END 2023-06-21 18:58 | disposition home or self-care (01) ==
PROVIDERS: Emergency Provider Physician Assistant Medical; Family Provider Family Medicine; PCP Family Medicine
DX: J36 Peritonsillar abscess (principal)
CPT/HCPCS: 70491; 80053; 85025; 96365; 96375; 99283; 99284; J0696; J1100; J1885; J2405